=== PATIENT | female | born 1990 | race Caucasian/White ===

== ENCOUNTER 2019-05-02 11:36 | Emergency (ER) | payer OTHER ==
[~2019-05-02] VITALS: Ht 160 cm; Wt 142.9 kg
[2019-05-02] MEDS ORDERED: BACTRIM DS TAB1 EACH PO (16:18)
== END 2019-05-02 16:25 | disposition home or self-care (01) ==
LOC: ER 11:36
DX: L03.114 Cellulitis of left upper limb (principal)